=== PATIENT | female | born 1940 | race Asian ===

== ENCOUNTER 2025-01-18 10:48 | Day surgery (SDC) | payer MEDICARE, MEDICAID, SELFPAY ==
[2025-01-18] VITALS (13 sets, daily range): BP systolic 144–191; BP diastolic 80–101
[2025-01-18 11:58] LABS: Glucose - Point of Care 94 mg/dl (70-99)
[2025-01-18] MEDS: VANCOCIN 200 IV (13:20)
--- NOTE | 2025-01-18 15:04 | ITS.CL.PACE ---
[facility] - Pacemaker Implant
Pacemaker Implant
Procedure Report:
PACEMAKER GENERATOR CHANGE
Date of Procedure: January 18, 2025
Primary Care Physician: Dr. Joshua Chow
Primary Delimer: Dr. Rosy Escalona
Procedures:
1. Removal of a dual chamber PPM generator at [facility]
2. Implant of a new dual chamber PPM generator
Indication of Procedure:
1. PM generator at [facility]
Indication/History: The patient is an 84-year-old woman with a past medical history of a dual-chamber pacemaker who presents for pacemaker generator change due to battery at [facility]. He she is dependent in both the atrium and the ventricle. All lead
data is stable.
Antibiotic: Vancomycin 1 g, aztreonam 2 g IV
Sedation/anesthesia: Per anesthesia staff.
Description of Procedure: 'Time out' was called and confirmed. The patient was prepped and draped in sterile fashion. Lidocaine with epinephrine was used for local anesthesia. An incision was made along the previous incision and the device and
leads were carefully dissected from the pocket. Hemostasis was obtained with electrocautery. The leads were from the device header and tested using an external analyzer. The pocket was liberally irrigated with antibiotic solution. Once
testing (see below) showed adequate and stable function, the leads were connected to the generator header and the leads and generator were placed within the pocket. The pocket was closed in the typical fashion.
EXPLANTED PPM GENERATOR: Castro [id number] serial #[id number] implant date 03/17/2018
IMPLANTED PPM GENERATOR: Castro [id number] serial #[id number]
Existing RA lead: Castro 8 TC/46 serial number [id number] implanted 03/17/2018
Existing RV lead: Castro [id number] TC/52 serial number [id number] implanted 03/17/2018
DEVICE TESTING:
Sensing: RA [PACED], RV [PACED]
Capture: RA 0.75 V@0.4ms, RV 2.0 V@0.7ms
Ohms: RA 370, RV 460
FINAL PROGRAMMING
Abhishek Pacing: DDDR 60-90 ppm
Complications: None
CONCLUSIONS:
1. Successful explant of a dual chamber permanent pacemaker
2. Successful implant of a dual chamber permanent pacemaker
RECOMMENDATIONS:
1. Routine post-op care.
2. In-Office wound check within 7 days.
3. Office interrogation in 4 weeks
Copy to: Dr. Joshua Chow
== END 2025-01-18 16:38 | disposition home or self-care (01) ==
LOC: CATH 10:48
PROVIDERS: ATTENDING PHYSICIAN Internal Medicine Interventional Cardiology; OTHER PHYSICIAN Internal Medicine Cardiovascular Disease; PRIMARYCARE PHYSICIAN Family Medicine
DX: Z45.010 Encounter for checking and testing of cardiac pacemaker pulse generator [battery] (principal); I48.19 Other persistent atrial fibrillation; I48.4 Atypical atrial flutter; I49.5 Sick sinus syndrome; Z79.01 Long term (current) use of anticoagulants; Z79.899 Other long term (current) drug therapy; Z88.5 Allergy status to narcotic agent
CPT/HCPCS: 33228; 82962; 93005; C1785